=== PATIENT | male | born 1955 | race Caucasian/White ===

== ENCOUNTER 2016-04-07 10:18 | Emergency (ER) | payer OTHER, MEDICAID ==
[~2016-04-07] VITALS: Ht 157.5 cm; Wt 62.6 kg
[2016-04-07 10:24] VITALS: BP 151/76; PULSE 79; RESP 14; TEMP 97.6; O2SAT 100
--- NOTE | 2016-04-07 10:29 | NUR ---
Patient triaged and placed in waiting room. VSS and patient appears in no acute distress at this time. Accompanied by eife, awaiting available bed, and MD notified of need for MSE.
[2016-04-07] MEDS ORDERED: INSU100V9 SUBCUT (10:40)
[2016-04-07] MEDS ORDERED: FINA5TAB3 PO (10:40)
[2016-04-07] MEDS ORDERED: BETA15OI7 TP (10:40)
[2016-04-07] MEDS ORDERED: ASPI81TA2 PO (10:40)
[2016-04-07] MEDS ORDERED: FERR-57 PO (10:40)
[2016-04-07] MEDS ORDERED: DOCU-144 PO (10:40)
[2016-04-07] MEDS ORDERED: TRIA10PO3 MC (10:40)
[2016-04-07] MEDS ORDERED: CLOT15CR10 TP (10:40)
[2016-04-07] MEDS ORDERED: NOR10 PO (10:40)
--- NOTE | 2016-04-07 10:41 | NUR ---
Medication reconciliation completed with information provided by patient. Any prior medication reconciliation on file was reviewed and corrected.
--- NOTE | 2016-04-07 12:40 | NUR ---
Pt report received from ELHAM Granda. Pt sent per [facility] to R/O DVT. Pt c/o swelling to LLE x 1 week. - Keya's sign. Pt able to ambulate without difficulty. Denies c/o pain or discomfort.
--- NOTE | 2016-04-07 12:40 | NUR ---
Patient to ER bed 2 to gon for evaluation. Side rails up. Report given to KAELA. Addendum: 04/07/16 at 1243 by JANA Patient to ER bed 2 to gown for evaluation. Side rails up. Report given to
--- NOTE | 2016-04-07 12:56 | NUR ---
ER at bedside examining patient.
[2016-04-07 13:33] LABS: BASOPHILS % (AUTO) 0.5 % (0.0-2.0); EOSINOPHILS # (AUTO) 0.4 K/uL (0.0-0.4); EOSINOPHILS % (AUTO) 4.4 % (0.0-4.0); HEMATOCRIT 30.5 % (36-54); HEMOGLOBIN 10.8 g/dL (14.0-18.0); LYMPHOCYTES % (AUTO) 20.8 % (20.5-51.5); MEAN CORPUSCULAR HEMOGLOBIN 32 pg (27-31); MEAN CORPUSCULAR HGB CONC 35 % (32-36); MEAN CORPUSCULAR VOLUME 90 fL (79.0-98.0); MONOCYTES # (AUTO) 0.6 K/uL (0.0-1.0); MONOCYTES % (AUTO) 6.4 % (1.7-9.3); NEUTROPHILS # (AUTO) 6.5 K/uL (1.8-7.7); NEUTROPHILS % (AUTO) 67.9 % (40.0-70.0); PLATELET COUNT (AUTO) 145 K/uL (130-430); RED CELL DISTRIBUTION WIDTH 13.2 % (9.0-15.0); WHITE BLOOD COUNT (AUTO) 9.5 K/uL (4.8-10.8)
[2016-04-07 13:40] LABS: CALCIUM 7.3 mg/dL (8.4-11.0); CREATININE 6.04 mg/dL (0.55-1.30); POTASSIUM 5.3 mmol/L (3.5-5.1)
[2016-04-07 13:47] LABS: ALBUMIN 4.1 g/dL (3.4-4.8); TOTAL BILIRUBIN 0.4 mg/dL (0.0-1.0); TOTAL PROTEIN, SERUM 7.8 g/dL (6.4-8.3)
[2016-04-07 13:49] LABS: PROTHROMBIN TIME 10.4 SECS (9.5-12.5)
[2016-04-07] MEDS ORDERED: SODIUM POLYSTYRENE SULFONATE 15 GM/60 ML UDBTL PO ONE (14:00)
--- NOTE | 2016-04-07 14:08 | NUR ---
Patient does not wish to proceed with medical care recommended by Dr. Mathis. Patient given information related to possible complications, up to and including , which could occur as a result of leaving hospital at this time. Patient verbalizes understanding of risks involved leaving against medical advice. Patient has signed AMA form, ambulates without difficulty, stable condition.
== END 2016-04-07 14:08 | disposition left against medical advice (07) ==
LOC: SED 10:19
DX: N19 Unspecified kidney failure (principal); I10 Essential (primary) hypertension; E11.9 Type 2 diabetes mellitus without complications; E87.5 Hyperkalemia; R60.9 Edema, unspecified; Z79.4 Long term (current) use of insulin; Z79.82 Long term (current) use of aspirin
CPT/HCPCS: 36415; 71010; 80053; 82550-TC; 83880; 84484; 85025; 85379; 85610-TC; 85730-TC; 99285